=== PATIENT | male | born 1980 | race Caucasian/White ===

== ENCOUNTER 2023-11-06 03:08 | Emergency (ER) | payer MEDICAID ==
[~2023-11-06] VITALS: Ht 165.1 cm; Wt 57.0 kg
[2023-11-06 03:15] VITALS: TEMP 98.4; O2SAT 96
[2023-11-06 04:30] LABS: HEMATOCRIT. 25.9 % (42.0-52.0); HEMOGLOBIN. 9.1 g/dL (14.0-18.0); MEAN CORPUSCULAR HEMOGLOBIN 36.6 pg (28.0-32.0); MEAN CORPUSCULAR HGB CONC 35.3 g/dL (31.0-37.0); MEAN CORPUSCULAR VOLUME 103.9 fL (80.0-94.0); MEAN PLATELET VOLUME 7.9 fl (7.4-10.4); PLATELET 324 x1000/uL (130-400); RED BLOOD CELL COUNT 2.49 mill/uL (4.7-6.1); RED CELL DISTRIBUTION WIDTH 13.3 % (11.6-14.6)
[2023-11-06 04:31] LABS: DIFFERENTIAL COMMENT 1
[2023-11-06] MEDS: HYDROCODONE/ACETAMINOPHEN 5/325MG TABLET PO ONE (04:31)
[2023-11-06 04:37] LABS: CHLORIDE 105 mEq/L (98-107); POTASSIUM 3.7 mEq/L (3.5-5.1); SODIUM 138 mEq/L (136-145)
[2023-11-06 04:38] LABS: CALCIUM 8.9 mg/dL (8.7-10.4); CARBON DIOXIDE 28 mEq/L (21-32)
[2023-11-06 04:43] LABS: CREATININE 0.7 mg/dL (0.6-1.3); GLUCOSE 87 mg/dL (70-105); UREA NITROGEN BLOOD 15 mg/dL (9-23)
[2023-11-06 04:44] LABS: TROPONIN I HIGH SENSITIVITY 6 ng/L (3.0-53)
[2023-11-06 04:45] LABS: ALANINE AMINOTRANSFERASE 11 IU/L (10-49); ALBUMIN 4.3 g/dL (3.2-4.8); ASPARTATE AMINOTRANSFERASE 17 IU/L (<34); BILIRUBIN DIRECT 0.9 mg/dL (<=3.0); BILIRUBIN TOTAL 1.8 mg/dL (0.1-1.0); CREATINE KINASE 49 IU/L (46-171); PHOSPHORUS 3.8 mg/dL (2.5-4.9); PROTEIN TOTAL 6.5 g/dL (6.0-8.3)
[2023-11-06 04:51] LABS: ETHANOL BLOOD < 10 mg/dL (<10)
[2023-11-06] MEDS ORDERED: IBUP-2029 MT (05:08)
[2023-11-06] MEDS ORDERED: BACL-141 MT (05:08)
[2023-11-06 05:14] LABS: OVALOCYTES 2+; PLATELET ESTIMATE NORMAL
[2023-11-06] MEDS: MAGNESIUM 1 G PREMIX 100 ML IV NR (05:14)
[2023-11-06] MEDS: MORPHINE SULFATE 4 MG/ML INJ (FOR IV/IM USE) IV ONE (05:15)
[2023-11-06] MEDS ORDERED: ACET10DR3 RIGHT EAR (05:16)
[2023-11-06 06:30] VITALS: BP 105/70; PULSE 82; RESP 15
== END 2023-11-06 06:46 | disposition home or self-care (01) ==
LOC: ER 03:08
DX: R25.2 Cramp and spasm (principal); I49.9 Cardiac arrhythmia, unspecified; Z00.00 Encounter for general adult medical examination without abnormal findings; Z88.0 Allergy status to penicillin
CPT/HCPCS: 80076; 80048; 80320; 82550; 83880; 83735; 84100; 85025; 84484; 36415; 71045; 93005; 96365; 96375; 99285; J3475; J2270; Z7610; G0480

== ENCOUNTER 2024-03-08 13:12 | Emergency (ER) | payer MEDICAID ==
[~2024-03-08] VITALS: Ht 160 cm; Wt 58.0 kg
[~2024-03-08 13:12] MED LIST: ACET10DR3 RIGHT EAR; BACL-141 MT; IBUP-2029 MT
[2024-03-08 13:37] VITALS: TEMP 98.5; O2SAT 100
[2024-03-08 15:21] VITALS: BP 156/103; PULSE 102; RESP 18
[2024-03-08] MEDS: LORAZEPAM 0.5MG TABLET PO ONE (15:21)
[2024-03-08] MEDS: KETOROLAC 15MG/ML VIAL IM ONE (15:21)
[2024-03-08] MEDS ORDERED: LIDO700A15 TP (15:54)
== END 2024-03-08 17:50 | disposition home or self-care (01) ==
LOC: ER 13:12
DX: G89.29 Other chronic pain (principal); M79.606 Pain in leg, unspecified; F41.9 Anxiety disorder, unspecified; I10 Essential (primary) hypertension; Z88.0 Allergy status to penicillin; Z79.899 Other long term (current) drug therapy
CPT/HCPCS: 99283; 96372; J1885